=== PATIENT | male | born 1980 | race Asian ===

== ENCOUNTER 2019-09-11 22:05 | Emergency (ER) | payer OTHER ==
[2019-09-11 22:21] VITALS: BP 109/69; PULSE 72; TEMP 98.5; BMI 20.3
[2019-09-12 00:11] LABS: BASO % 1.2 % (0-2.0); EOS % 0.3 % (0-4.5); HEMATOCRIT 39.8 % (35.4-49); HEMOGLOBIN 13.4 GM/dL (11.7-16.9); LYMPH % 25.6 % (8-40); MCH 33.4 pg (25.7-33.7); MCHC 33.6 g/dl (32.0-35.9); MEAN CELL VOLUME 99.5 fl (80-96); MEAN PLT VOLUME 7.6 fl (7.5-11.1); MONO % 5.5 % (3.8-10.2); NEUT % 67.4 % (42.8-82.8); PLATELET COUNT 289 K/MM3 (134-434); RDW 14.2 % (11.9-15.9); WHITE BLOOD COUNT 7.2 K/mm3 (4.0-10.0)
--- NOTE | 2019-09-12 00:14 | PDOC ---
Documentation entered by Nicanor Pruitt SCRIBE, acting as scribe for Nina Pearce MD. Nina Pearce MD: This documentation has been prepared by the Edmond mcwilliams Daniel, SCRIBE, under my direction and personally reviewed by me in its entirety. I confirm that the documentation accurately reflects all work, treatment, procedures, and medical decision making performed by me. History of Present Illness - General Chief Complaint: Alcohol intoxication Stated Complaint: DETOX History Source: Patient Exam Limitations: No Limitations - History of Present Illness Initial Comments: 09/12/19 00:07 The patient is a 38 year old male with a past medical history of alcohol abuse here today for evaluation of alcohol intoxication. The patient reports that he wants to go through detox for alcohol and that he had been clean for 2.5 years until 3 weeks ago when he began drinking again. He states that he began drinking again due to stress over his son undergoing surgery and states that his last drink was 4 hours ago. He notes having withdrawal symptoms of hand tremors, headache, and diaphoresis and states that he was last in detox 3 years ago. Patient denies lightheadedness. Denies fever, chills. Denies chest pain, shortness of breath. Denies nausea, vomiting, diarrhea, abdominal pain. Allergies: NKA Past History - Past Medical History Allergies/Adverse Reactions: Allergies Allergy/AdvReac Type Severity Reaction Status Date / Time No Known Allergies Allergy Verified 09/11/19 23:32 Home Medications: Ambulatory Orders Alprazolam [Xanax] 2 mg PO PRN 09/11/19 Trazodone HCl 100 PO HS 09/11/19 Zolpidem Tartrate [Ambien] 10 mg PO HS 09/11/19 COPD: No - Psycho Social/Smoking Cessation Hx Smoking History: Current every day smoker Number of Cigarettes Smoked Daily: 3 Information on smoking cessation initiated: No Hx Alcohol Use: Yes (8-10 beers per day) Drug/Substance Use Hx: No Review of Systems - Review of Systems Able to Perform ROS?: Yes Comments:: 09/12/19 00:07 GENERAL/CONSTITUTIONAL: +diaphoresis. No fever or chills. No weakness. HEAD, EYES, EARS, NOSE AND THROAT: No change in vision. No ear pain or discharge. No sore throat. CARDIOVASCULAR: No chest pain or shortness of breath. RESPIRATORY: No cough, wheezing, or hemoptysis. GASTROINTESTINAL: No nausea, vomiting, diarrhea or constipation. GENITOURINARY: No dysuria, frequency, or change in urination. MUSCULOSKELETAL: No joint or muscle swelling or pain. No neck or back pain. SKIN: No rash NEUROLOGIC: +headache. +hand tremors. No vertigo, loss of consciousness, or change in strength/sensation. ENDOCRINE: No increased thirst. No abnormal weight change. HEMATOLOGIC/LYMPHATIC: No anemia, easy bleeding, or history of blood clots. ALLERGIC/IMMUNOLOGIC: No hives or skin allergy. Constitutional: No: Chills, Diaphoresis, Fever, Weakness *Physical Exam - Vital Signs Last Vital Signs Temp Pulse Resp BP Pulse Ox 98.5 F 72 19 109/69 100 09/11/19 22:15 09/11/19 22:15 09/11/19 22:15 09/11/19 22:15 09/11/19 22:15 - Physical Exam 09/12/19 00:08 awake alert lungs clear bilat heart rrr no mrg abd soft nt nd. ext wwp. no edema. no calf tenderness. awake alert speech clear . appropriate. gait normal. Medical Decision Making - Medical Decision Making 09/12/19 00:09 38 yo male h/o etoh abuse, recently been binging for 3 week. was sober for 2.5 years. under stress due to sons tongu venous malformation has had many surgeries. and recently needed another. states he does withdraw gets shaky, clifford h/o withdrawal seizures. no hallucinations. last drink was few hours ago. d/w [facility]. Pati Posey, ,will accept pt to [facility] for detox. clinically appropriate here. Discharge - Discharge Information Problems reviewed: Yes Clinical Impression/Diagnosis: Alcohol abuse Condition: Improved Disposition: HOME - Admission No - Follow up/Referral Referrals: ON STAFF,NOT [Primary Care Provider] - - Patient Discharge Instructions Patient Printed Discharge Instructions: DI for Alcohol Abuse Additional Instructions: go directly to [facility] for DEtox . return for any problems or concerns. - Post Discharge Activity
[2019-09-12 00:40] LABS: URINE APPEARANCE CLEAR; URINE BILIRUBIN NEGATIVE (NEGATIVE); URINE COLOR YELLOW; URINE GLUCOSE (UA) NEGATIVE (NEGATIVE); URINE KETONE NEGATIVE (NEGATIVE); URINE LEUK ESTERASE NEGATIVE (NEGATIVE); URINE NITRITE NEGATIVE (NEGATIVE); URINE PROTEIN NEGATIVE (NEGATIVE)
[2019-09-12 00:54] LABS: BILIRUBIN,TOTAL 0.8 mg/dL (0.2-1); BLOOD UREA NITROGEN 8.7 mg/dL (7-18); CALCIUM 8.7 mg/dL (8.5-10.1); CREATININE 0.9 mg/dL (0.55-1.3); POTASSIUM 4.3 mmol/L (3.5-5.1); TOT PROT 6.6 g/dl (6.4-8.2)
[2019-09-12 02:20] LABS: COCAINE, UR NEGATIVE ng/ml (CUTOFF=300); METHADONE, UR NEGATIVE ng/ml (CUTOFF=300); OPIATES, URI NEGATIVE ng/ml (CUTOFF=300); PHENCYCLIDINE,URINE NEGATIVE ng/ml (CUTOFF=25); URINE AMPHETAMINES NEGATIVE ng/ml (CUTOFF=500); URINE BARBITURATES NEGATIVE ng/ml (CUTOFF=200)
[2019-09-12 07:20] LABS: URINE BENZODIAZEPINES POSITIVE ng/ml (CUTOFF=200)
== END 2019-09-12 00:39 | disposition home or self-care (01) ==
LOC: JER 22:05
DX: F10.120 Alcohol abuse with intoxication, uncomplicated (principal); Y90.6 Blood alcohol level of 120-199 mg/100 ml; F17.210 Nicotine dependence, cigarettes, uncomplicated
CPT/HCPCS: 36415; 80053; 80307; 81003; 85025; 99282-25

== ENCOUNTER 2019-09-12 01:17 | Inpatient (IN) | payer OTHER ==
--- NOTE | 2019-09-12 01:21 | HP ---
CIWA Score Nausea/Vomitin-No Nausea/No Vomiting Muscle Tremors: 4-Moderate,w/Arms Extend Anxiety: 4-Mod. Anxious/Guarded Agitation: 4-Moderately Restless Paroxysmal Sweats: 3 Orientation: 0-Oriented Tacttile Disturbances: 0-None Auditory Disturbances: 0-None Visual Disturbances: 0-None Headache: 3-Moderate CIWA-Ar Total Score: 18 - Admission Criteria OASAS Guidelines: Admission for Medically Managed Detox: Requires at least one of the followin. CIWA greater than 12 2. Seizures within the past 24 hours 3. Delirium tremens within the past 24 hours 4. Hallucinations within the past 24 hours 5. Acute intervention needed for co occurring medical disorder 6. Acute intervention needed for co occurring psychiatric disorder 7. Severe withdrawal that cannot be handled at a lower level of care (continued vomiting, continued diarrhea, abnormal vital signs) requiring intravenous medication and/or fluids 8. Patient presents the following: CIWA greater than 12 Admission Criteria Met: Admission criteria met Admitting History and Physical - Smoking History Smoking history: Current every day smoker Aproximately how many cigarettes per day: 3 - Alcohol/Substance Use Hx Alcohol Use: Yes (8-10 beers per day) Admission [facility] Chief Complaint: seeking detox for alcoholism Allergies/Adverse Reactions: Allergies Allergy/AdvReac Type Severity Reaction Status Date / Time No Known Allergies Allergy Verified 09/11/19 23:32 History of Present Illness: referred by kat after client presented there in withdrawal seeking. detox from alcohol. The patient reports that he had been clean for 2.5 years until 3 weeks ago when he began drinking again. He states that he began drinking again due to stress over his son undergoing surgery and states that his last drink was 4 hours ago. He notes having withdrawal symptoms of hand tremors, headache, and diaphoresis and states that he was last in detox 3 years ago. + eye [employer]. Patient denies lightheadedness, seizures, black outs. Denies fever, chills. Denies chest pain, shortness of breath. Denies nausea, vomiting, diarrhea, abdominal pain. lives with family, unemployed, denies legals Exam Limitations: No Limitations - Ebola screening Have you traveled outside of the country in the last 21 days: No Have you had contact with anyone from an Ebola affected area: No Have you been sick,other than usual withdrawal symptoms: No Do you have a fever: No - Review of Systems Constitutional: Chills, Loss of Appetite, Night Sweats, Changes in sleep, Unintentional Wgt. Loss EENT: reports: No Symptoms Reported Respiratory: reports: No Symptoms reported Cardiac: reports: No Symptoms Reported GI: reports: Poor Appetite, Poor Fluid Intake : reports: No Symptoms Reported Musculoskeletal: reports: Back Pain (chronic), Neck Pain (chronic) Integumentary: reports: Sweating Neuro: reports: No Symptoms reported Endocrine: reports: No Symptoms Reported Hematology: reports: No Symptoms Reported Psychiatric: reports: Orientated x3, Anxious, Depressed (denies si) Other Systems: Reviewed and Negative Patient History - Patient Medical History Hx Anemia: No Hx Asthma: No Hx Chronic Obstructive Pulmonary Disease (COPD): No Hx Cancer: No Hx Cardiac Disorders: No Hx Congestive Heart Failure: No Hx Hypertension: No Hx Hypercholesterolemia: No Hx Pacemaker: No HX Cerebrovascular Accident: No Hx Seizures: No Hx Dementia: No Hx Diabetes: No Hx Gastrointestinal Disorders: No Hx Liver Disease: No Hx Genitourinary Disorders: No Hx Sexually Transmitted Disorders: No Hx Renal Disease (ESRD): No Hx Thyroid Disease: No Hx Human Immunodeficiency Virus (HIV): No Hx Hepatitis C: No Hx Depression: Yes Hx Suicide Attempt: No Hx Bipolar Disorder: No Hx Schizophrenia: No Other Medical History: panic attacks - Patient Surgical History Past Surgical History: No - PPD History Previous Implant?: Yes Documented Results: Negative w/o proof Implanted On Prior [facility] Admission?: No PPD to be Administered?: Yes - Smoking Cessation Smoking history: Current every day smoker Aproximately how many cigarettes per day: 20 Cigars Per Day: 0 Hx Chewing Tobacco Use: No Initiated information on smoking cessation: Yes 'Breaking Loose' booklet given: 09/12/19 - Substance & Tx. History Hx Alcohol Use: Yes Hx Substance Use: Yes Substance Use Type: Alcohol Hx Substance Use Treatment: Yes (seafielt) - Substances abused Alcohol Other (specify): beer Substance route: Oral Frequency: Daily Amount used: 10- 12 oz Age of first use: 24 Date of last use: 09/11/19 Admission Physical Exam [facility] - Physical General Appearance: Yes: Mild Distress, Tremorous (felt), Anxious HEENTM: Yes: EOMI, Normocephalic, Normal Voice, DENISE, Pharynx Normal, Other ( poor dentition) Respiratory: Yes: Chest Non-Tender, Lungs Clear, Normal Breath Sounds, No Respiratory Distress, No Accessory Muscle Use Neck: Yes: No masses,lesions,Nodules, Supple, Trachea in good position Breast: Yes: Breast Exam Deferred Cardiology: Yes: Regular Rhythm, Regular Rate, S1, S2 Abdominal: Yes: Normal Bowel Sounds, Non Tender, Soft Genitourinary: Yes: Within Normal Limits (denies) Back: Yes: Normal Inspection Musculoskeletal: Yes: full range of Motion, Gait Steady Extremities: Yes: Normal Capillary Refill, Normal Range of Motion, Non-Tender, Tremors Neurological: Yes: Fully Oriented, Alert, Motor Strength 5/5, Depressed Affect ( denies si) Integumentary: Yes: Dry, Warm Lymphatic: Yes: Within Normal Limits - Diagnostic (1) Alcohol dependence with withdrawal, uncomplicated Status: Acute (2) Substance induced mood disorder Status: Acute (3) Nicotine dependence Status: Acute Qualifiers: Nicotine product type: cigarettes Substance use status: uncomplicated Qualified Code(s): F17.210 - Nicotine dependence, cigarettes, uncomplicated (4) Depressed affect Status: Acute Cleared for Admission S - Detox or Rehab [facility] Level of Care: Medically Managed (ativan) Claeared for Rehab Admission: No Inpatient Rehab Admission - Rehab Decision to Admit Inpatient rehab admission?: No
[2019-09-12] MEDS ORDERED: MAGNESIUM HYDROX 2400MG/30ML ORAL SUSPENSION 30 ML CUP PO PRN (01:32)
[2019-09-12] MEDS ORDERED: MENTHOL/PHENOL 1 EACH UD MM PRN (01:32)
[2019-09-12] MEDS ORDERED: guaiFENesin 200 MG/10 ML 10 ML UNIT-DOSE CUPS PO PRN (01:32)
[2019-09-12] MEDS ORDERED: MAG HYDROX/AL HYDROX/SIMETH 30 ML UNIT-DOSE CUP PO PRN (01:32)
[2019-09-12] MEDS ORDERED: MELATONIN 5 MG TABLETS PO PRN (01:32)
[2019-09-12] MEDS ORDERED: P-EPHED 60MG/TRIPROLIDI 2.5MG TABLET PO PRN (01:32)
[2019-09-12] MEDS ORDERED: METHOCARBAMOL 500 MG TABLET PO PRN (01:32)
[2019-09-12] MEDS ORDERED: DICYCLOMINE HCL 10 MG CAPSULE PO PRN (01:32)
[2019-09-12] MEDS ORDERED: hydrOXYzine PAMOATE 25 MG CAPSULE (FP) PO PRN (01:32)
[2019-09-12] MEDS ORDERED: ONDANSETRON *ODT* 4 MG TABLET SL PRN (01:32)
[2019-09-12] MEDS ORDERED: BISMUTH SUBSALICYLATE 524 MG/30 ML UD PO PRN (01:32)
[2019-09-12] MEDS ORDERED: IBUPROFEN 400 MG TABLET (FP) PO PRN (01:32)
[2019-09-12] MEDS ORDERED: NICOTINE POLACRILEX 2 MG GUM BUC PRN (01:32)
[2019-09-12] MEDS ORDERED: MAGNESIUM CITRATE 300 ML BOTTLE PO PRN (01:32)
[2019-09-12] MEDS ORDERED: ACETAMINOPHEN 325 MG TABLET (FP) PO PRN ×2 (01:32)
[2019-09-12 01:48] VITALS: BMI 20.3
[2019-09-12] MEDS: LORazepam 1 MG TABLET PO PRN (02:48)
[2019-09-12] MEDS: LORazepam 2 MG TABLET PO SCH ×4 (06:04→21:59)
[2019-09-12] MEDS: PRENATAL VITAMINS W/ FOLIC ACID TABLET (FP) PO SCH (10:09)
[2019-09-12] MEDS: NICOTINE 21 MG/24 HOURS TOPICAL PATCH TD SCH (10:09)
--- NOTE | 2019-09-12 14:46 | HP ---
CIWA Score Nausea/Vomitin-No Nausea/No Vomiting Muscle Tremors: 4-Moderate,w/Arms Extend Anxiety: 4-Mod. Anxious/Guarded Agitation: 4-Moderately Restless Paroxysmal Sweats: 3 Orientation: 0-Oriented Tacttile Disturbances: 0-None Auditory Disturbances: 0-None Visual Disturbances: 0-None Headache: 3-Moderate CIWA-Ar Total Score: 18 - Admission Criteria OASAS Guidelines: Admission for Medically Managed Detox: Requires at least one of the followin. CIWA greater than 12 2. Seizures within the past 24 hours 3. Delirium tremens within the past 24 hours 4. Hallucinations within the past 24 hours 5. Acute intervention needed for co occurring medical disorder 6. Acute intervention needed for co occurring psychiatric disorder 7. Severe withdrawal that cannot be handled at a lower level of care (continued vomiting, continued diarrhea, abnormal vital signs) requiring intravenous medication and/or fluids 8. Admitting History and Physical - Smoking History Smoking history: Current every day smoker Aproximately how many cigarettes per day: 3 - Alcohol/Substance Use Hx Alcohol Use: Yes (8-10 beers per day) Admission [facility] Allergies/Adverse Reactions: Allergies Allergy/AdvReac Type Severity Reaction Status Date / Time No Known Allergies Allergy Verified 09/11/19 23:32 - Ebola screening Have you traveled outside of the country in the last 21 days: No Have you had contact with anyone from an Ebola affected area: No Have you been sick,other than usual withdrawal symptoms: No Do you have a fever: No Patient History - Patient Medical History Hx Anemia: No Hx Asthma: No Hx Chronic Obstructive Pulmonary Disease (COPD): No Hx Cancer: No Hx Cardiac Disorders: No Hx Congestive Heart Failure: No Hx Hypertension: No Hx Hypercholesterolemia: No Hx Pacemaker: No HX Cerebrovascular Accident: No Hx Seizures: No Hx Dementia: No Hx Diabetes: No Hx Gastrointestinal Disorders: No Hx Liver Disease: No Hx Genitourinary Disorders: No Hx Sexually Transmitted Disorders: No Hx Renal Disease (ESRD): No Hx Thyroid Disease: No Hx Human Immunodeficiency Virus (HIV): No Hx Hepatitis C: No Hx Depression: No Hx Suicide Attempt: No Hx Bipolar Disorder: No Hx Schizophrenia: No Other Medical History: panic attacks - Patient Surgical History Past Surgical History: No Hx Neurologic Surgery: No Hx Cataract Extraction: No Hx Cardiac Surgery: No Hx Lung Surgery: No Hx Breast Surgery: No Hx Breast Biopsy: No Hx Abdominal Surgery: No Hx Appendectomy: No Hx Cholecystectomy: No Hx Genitourinary Surgery: No Hx Section: No Hx Orthopedic Surgery: No Anesthesia Reaction: No - PPD History Previous Implant?: Yes Documented Results: Negative w/o proof Implanted On Prior [facility] Admission?: No Date: 09/14/19 - Reproductive History Patient : No - Smoking Cessation Smoking history: Current every day smoker Aproximately how many cigarettes per day: 3 Cigars Per Day: 0 Hx Chewing Tobacco Use: No Initiated information on smoking cessation: No - Substances abused Alcohol Other (specify): beer Substance route: Oral Frequency: Daily Amount used: 10- 12 oz Age of first use: 24 Date of last use: 09/11/19 Admission Physical Exam [facility] - Vital Signs Vital Signs: Vital Signs - 24 hr 09/12/19 09/12/19 09/12/19 01:45 02:46 04:03 Temperature 97.3 F L 97 F L Pulse Rate 89 84 Respiratory 18 18 18 Rate Blood Pressure 100/66 108/77 09/12/19 09/12/19 09/12/19 06:26 09:09 13:29 Temperature 97.4 F L 98.5 F 98.4 F Pulse Rate 68 69 91 H Respiratory 16 18 20 Rate Blood Pressure 98/64 105/57 L 107/71 Breathalyzer - Breathalyzer Breathalyzer: 0.090 Urine Drug Screen - Test Device Lot number: [id number] Expiration date: 05/13/21 - Control Is test valid?: Yes - Results Drug screen NEGATIVE: No Urine drug screen results: BZO-Benzodiazepines
[2019-09-12] MEDS: THIAMINE HCL 100 MG TABLET (FP) PO SCH (22:00)
[2019-09-12] MEDS ORDERED: traZODone HCL 50 MG TABLET (FP) PO ONE (22:00)
[2019-09-13] MEDS: LORazepam 1 MG TABLET PO SCH ×4 (05:09→22:11)
--- NOTE | 2019-09-13 07:41 | CONSULT ---
[facility] Psychiatric Consult - Data Date of interview: 09/13/19 Admission source: [facility] Identifying data: Patient is a 38 year old [place] male, father of one , domiciled, unemployed, and is supported by financial savings. This is patient' s first admission to detox at [facility]. Patient admitted to for alcohol dependence. Substance Abuse History: Smoking Cessation. Smoking history: Current every day smoker. Aproximately how many cigarettes per day: 20. Cigars Per Day: 0. Hx Chewing Tobacco Use: No. Initiated information on smoking cessation: Yes. ' Breaking Loose' booklet given: 09/12/19. - Substance & Tx. History. Hx Alcohol Use: Yes. Hx Substance Use: Yes. Substance Use Type: Alcohol. Hx Substance Use Treatment: Yes (candice). - Substances abused. Alcohol. Other (specify): beer. Substance route: Oral. Frequency: Daily. Amount used: 10- 12 oz. Age of first use: 24. Date of last use: 09/11/19 Medical History: Denies. Endores good health. Psychiatric History: Patient denies history of psychiatric hospitalizations and suicide attempt. Mr. Palomares currently see's the psychiatrist Dr. Roa in [place], [place] at [facility] and is prescribed trazodone 100mg HS and xanax 2mg PRN for panic attacks. Mr. Palomares is also prescribed ambien 10mg for insomnia by his PCP. Diagnosis of anxiety disorder. At present patient reports feeling anxious and is experiencing difficulty sleeping. Physical/Sexual Abuse/Trauma History: denies. Mental Status Exam - Mental Status Exam Alert and Oriented to: Time, Place, Person Cognitive Function: Good Patient Appearance: Well Groomed Mood: Withdrawn Affect: Appropriate Patient Behavior: Appropriate, Cooperative Speech Pattern: Appropriate Voice Loudness: Normal Thought Process: Goal Oriented Thought Disorder: Not Present Hallucinations: Denies Suicidal Ideation: Denies Homicidal Ideation: Denies Insight/Judgement: Poor Sleep: Poorly Appetite: Fair Muscle strength/Tone: Normal Gait/Station: Normal Psychiatric Findings - Problem List ([place] 1, 2,3) (1) Alcohol-induced mood disorder Current Visit: Yes Status: Acute (2) Alcohol dependence with withdrawal, uncomplicated Current Visit: Yes Status: Acute (3) Anxiety disorder Current Visit: Yes Status: Chronic (4) Insomnia Current Visit: Yes Status: Acute - Initial Treatment Plan Initial Treatment Plan: Psychoeducation provided. Detoxification in progress. Will order Trazodone 100mg HS + Vistaril 50mg Q4h for anxiety. Benefits and side effects discussed. Verbal consent given.
[2019-09-13] MEDS ORDERED: hydrOXYzine PAMOATE 25 MG CAPSULE (FP) PO PRN (08:14)
[2019-09-13] MEDS: LORazepam 1 MG TABLET PO PRN (08:39)
[2019-09-13] MEDS ORDERED: GABAPENTIN 100 MG CAPSULE (FP) PO ONE (09:46)
--- NOTE | 2019-09-13 09:50 | PN ---
[facility] CIWA - CIWA Score Nausea/Vomitin-Mild Nausea/No Vomiting Muscle Tremors: 4-Moderate,w/Arms Extend Anxiety: 3 Agitation: 2 Paroxysmal Sweats: 2 Orientation: 0-Oriented Tacttile Disturbances: 1-Very Mild Itch/Numbness Auditory Disturbances: 1-Very Mild Visual Disturbances: 0-None Headache: 1-Very Mild CIWA-Ar Total Score: 15 BHS Progress Note (SOAP) Subjective: 38 years old male admitted on 09/12/19 for alcohol withdrawal sx management treated with ativan detox regimen tremor muscle sore headache Objective: 09/13/19 09:49 Vital Signs Temperature 98.4 F 09/13/19 09:12 Pulse Rate 54 L 09/13/19 09:12 Respiratory Rate 18 09/13/19 09:12 Blood Pressure 95/54 L 09/13/19 09:12 O2 Sat by Pulse Oximetry (%) 09/13/19 09:51 lab see ER report 09/12/19 Assessment: 09/13/19 09:52 alcohol withdrawal sx 09/13/19 09:52 patient was alcohol free for 2.5 years began drinking 3 weeks ago anxiety + ativan 1 mg po at 2 pm Plan: continue ativan detox regimen
[2019-09-13] MEDS: PRENATAL VITAMINS W/ FOLIC ACID TABLET (FP) PO SCH (10:02)
[2019-09-13] MEDS: NICOTINE 21 MG/24 HOURS TOPICAL PATCH TD SCH (10:03)
[2019-09-13] MEDS ORDERED: LORazepam 1 MG TABLET PO ONE (14:00)
[2019-09-13] MEDS: traZODone HCL 100 MG TABLET (FP) PO SCH (22:11)
[2019-09-13] MEDS: THIAMINE HCL 100 MG TABLET (FP) PO SCH (22:11)
[2019-09-14] MEDS ORDERED: LORazepam 0.5 MG TABLET PO PRN
[2019-09-14] MEDS: LORazepam 0.5 MG TABLET PO SCH ×4 (06:25→22:05)
[2019-09-14] MEDS: PRENATAL VITAMINS W/ FOLIC ACID TABLET (FP) PO SCH (10:20)
[2019-09-14] MEDS: NICOTINE 21 MG/24 HOURS TOPICAL PATCH TD SCH (10:22)
--- NOTE | 2019-09-14 12:01 | EKG ---
Test Reason : Blood Pressure : / mmHG Vent. Rate : 059 BPM Atrial Rate : 059 BPM P-R Int : 208 ms QRS Dur : 102 ms QT Int : 410 ms P-R-T Axes : 067 083 062 degrees QTc Int : 405 ms SINUS BRADYCARDIA OTHERWISE NORMAL ECG NO PREVIOUS ECGS AVAILABLE Confirmed by REUBEN TINEO MD ([id number]) on 09/14/2019 12:00:57 PM Referred By: BELEM Confirmed By:REUBEN TINEO MD
--- NOTE | 2019-09-14 14:09 | PN ---
S CIWA - CIWA Score Nausea/Vomitin-Mild Nausea/No Vomiting Muscle Tremors: 3 Anxiety: 2 Agitation: 1-Slight > Activity Paroxysmal Sweats: 2 Orientation: 0-Oriented Tacttile Disturbances: 0-None Auditory Disturbances: 0-None Visual Disturbances: 0-None Headache: 1-Very Mild CIWA-Ar Total Score: 10 BHS Progress Note (SOAP) Subjective: 38 years old male admitted on 09/12/19 for alcohol withdrawal sx management treated with ativan detox regimen slept through the night feeling better today less tremor mild anxiety discuss aftercare with staff Objective: 09/14/19 14:09 Vital Signs Temperature 98.4 F 09/14/19 13:06 Pulse Rate 75 09/14/19 13:06 Respiratory Rate 18 09/14/19 13:06 Blood Pressure 93/56 L 09/14/19 13:06 O2 Sat by Pulse Oximetry (%) 09/14/19 14:10 See ER 09/10/19 lab report Assessment: 09/14/19 14:11 alcohol withdrawal sx Plan: continue ativan detox regimen
[2019-09-14] MEDS: THIAMINE HCL 100 MG TABLET (FP) PO SCH (22:05)
[2019-09-14] MEDS: traZODone HCL 100 MG TABLET (FP) PO SCH (22:05)
[2019-09-15] MEDS ORDERED: LORazepam 0.5 MG TABLET PO ONE (05:00)
[2019-09-15 09:10] VITALS: BP 106/62; PULSE 90; TEMP 98
--- NOTE | 2019-09-15 09:30 | DS ---
[facility] Detox Discharge Summary Admission Date: 09/12/19 Discharge Date: 09/15/19 - History Present History: Alcohol Dependence Additional Comments: 38 years old male admitted on 09/12/19 for alcohol withdrawal sx management ativan as treatment regimen patient tolerated well alert oriented x 3 cardiac s1s2 regular rate rhythm respiratory clear lung bilaterally on auscultation extremities full range of motion - Physical Exam Results Vital Signs: Vital Signs Temperature 98.0 F 09/15/19 09:08 Pulse Rate 90 09/15/19 09:08 Respiratory Rate 18 09/15/19 09:08 Blood Pressure 106/62 09/15/19 09:08 O2 Sat by Pulse Oximetry (%) Pertinent Admission Physical Exam Findings: alcohol withdrawal sx lab see 09/10/19 ER report - Treatment Hospital Course: Detox Protocol Followed, Detoxed Safely, Responded well, Discharged Condition Good, Rehab Referral Accepted Patient has Accepted a Rehab Referral to: [facility] - Medication Discharge Medications: Ambulatory Orders Trazodone HCl 100 mg PO HS 09/11/19 Zolpidem Tartrate [Ambien] 10 mg PO HS 09/11/19 - Diagnosis (1) Alcohol dependence with withdrawal, uncomplicated Current Visit: Yes Status: Acute (2) Nicotine dependence Current Visit: Yes Status: Acute Qualifiers: Nicotine product type: cigarettes Substance use status: in withdrawal Qualified Code(s): F17.213 - Nicotine dependence, cigarettes, with withdrawal (3) Substance induced mood disorder Current Visit: Yes Status: Suspected - AMA Did Patient Leave Against Medical Advice: No CIWA Score - CIWA Score Nausea/Vomitin-No Nausea/No Vomiting Muscle Tremors: 2 Anxiety: 1-Mildly Anxious Agitation: 0-Normal Activity Paroxysmal Sweats: 1-Minimal Palms Moist Orientation: 0-Oriented Tacttile Disturbances: 0-None Auditory Disturbances: 0-None Visual Disturbances: 0-None Headache: 1-Very Mild CIWA-Ar Total Score: 5
[2019-09-15] MEDS: PRENATAL VITAMINS W/ FOLIC ACID TABLET (FP) PO SCH (10:15)
[2019-09-15] MEDS: NICOTINE 21 MG/24 HOURS TOPICAL PATCH TD SCH (10:15)
== END 2019-09-15 11:34 | disposition home or self-care (01) | DRG 775 ==
LOC: EDSTATUS 02:18 → Y3N 02:20
PROVIDERS: ADMIT Allergy & Immunology; ATTEND Allergy & Immunology
PROC: HZ2ZZZZ Detoxification Services for Substance Abuse Treatment (ICD-10-PCS; principal; 2019-09-12)
DX: F10.230 Alcohol dependence with withdrawal, uncomplicated (principal); F17.213 Nicotine dependence, cigarettes, with withdrawal; F10.24 Alcohol dependence with alcohol-induced mood disorder; F19.24 Other psychoactive substance dependence with psychoactive substance-induced mood disorder; F41.9 Anxiety disorder, unspecified; G47.00 Insomnia, unspecified; R45.89 Other symptoms and signs involving emotional state
CPT/HCPCS: 36415; 86593; 93005; 93010

== ENCOUNTER 2021-10-03 13:34 | Inpatient (IN) | payer OTHER ==
[2021-10-03] MEDS ORDERED: IBUPROFEN 400 MG TABLET (FP) PO PRN (14:46)
[2021-10-03] MEDS ORDERED: LORazepam 1 MG TABLET PO PRN (14:46)
[2021-10-03] MEDS ORDERED: MAGNESIUM CITRATE 300 ML BOTTLE PO PRN (14:46)
[2021-10-03] MEDS ORDERED: MENTHOL/PHENOL 1 EACH UD MM PRN (14:46)
[2021-10-03] MEDS ORDERED: METHOCARBAMOL 500 MG TABLET PO PRN (14:46)
[2021-10-03] MEDS ORDERED: ONDANSETRON *ODT* 4 MG TABLET SL PRN (14:46)
[2021-10-03] MEDS ORDERED: MAG HYDROX/AL HYDROX/SIMETH 30 ML UNIT-DOSE CUP PO PRN (14:46)
[2021-10-03] MEDS ORDERED: ACETAMINOPHEN 325 MG TABLET (FP) PO PRN ×2 (14:46)
[2021-10-03] MEDS ORDERED: MAGNESIUM HYDROX 2400MG/30ML ORAL SUSPENSION 30 ML CUP PO PRN (14:46)
[2021-10-03] MEDS ORDERED: BISMUTH SUBSALICYLATE 524 MG/30 ML PO PRN (14:46)
[2021-10-03 15:16] VITALS: BMI 19.1
[2021-10-03] MEDS: LORazepam 2 MG TABLET PO SCH ×2 (19:32→22:48)
[2021-10-03] MEDS: hydrOXYzine PAMOATE 25 MG CAPSULE (FP) PO SCH ×2 (19:33→22:47)
[2021-10-03] MEDS: PRENATAL VITAMINS W/ FOLIC ACID TABLET (FP) PO SCH (19:47)
[2021-10-03] MEDS ORDERED: MELATONIN 5 MG TABLETS PO SCH (22:00)
[2021-10-03] MEDS ORDERED: THIAMINE HCL 100 MG TABLET (FP) PO SCH (22:00)
[2021-10-03] MEDS: NICOTINE 10 MG CARTRIDGE (INHALER) IH PRN (22:47)
[2021-10-04] MEDS: hydrOXYzine PAMOATE 25 MG CAPSULE (FP) PO SCH ×3 (06:42→13:26)
[2021-10-04] MEDS: LORazepam 2 MG TABLET PO SCH ×2 (06:42→10:12)
[2021-10-04] MEDS: PRENATAL VITAMINS W/ FOLIC ACID TABLET (FP) PO SCH (10:12)
[2021-10-04] MEDS: NICOTINE 10 MG CARTRIDGE (INHALER) IH PRN (10:12)
[2021-10-04 10:59] VITALS: PULSE 56
[2021-10-04 12:38] LABS: HEMOGLOBIN 12.1 GM/dL (11.7-16.9); MCH 37.2 pg (25.7-33.7); MCHC 34.4 g/dl (32.0-35.9); MEAN CELL VOLUME 108.2 fl (80-96); MEAN PLT VOLUME 7.6 fl (7.5-11.1); PLATELET COUNT 223 10^3/uL (134-434); RBC 3.24 M/mm3 (4.00-5.60); RDW 19.1 % (11.9-15.9)
[2021-10-04 12:41] LABS: CALCIUM 9.2 mg/dL (8.5-10.1)
[2021-10-04 12:42] LABS: ALBUMIN 3.3 g/dl (3.4-5.0)
[2021-10-04 12:45] LABS: CREATININE 0.9 mg/dL (0.55-1.3)
[2021-10-04 12:46] LABS: BILIRUBIN,TOTAL 1.6 mg/dL (0.2-1); TOT PROT 5.9 g/dl (6.4-8.2)
[2021-10-04 13:17] VITALS: BP 89/51; TEMP 97.5
[2021-10-05] MEDS ORDERED: LORazepam 1 MG TABLET PO SCH (05:00)
[2021-10-06] MEDS ORDERED: LORazepam 0.5 MG TABLET PO PRN
[2021-10-06] MEDS ORDERED: LORazepam 0.5 MG TABLET PO SCH (05:00)
[2021-10-07] MEDS ORDERED: LORazepam 0.5 MG TABLET PO ONE (05:00)
== END 2021-10-04 15:38 | disposition left against medical advice (07) | DRG 770 ==
LOC: YASAS 13:34 → Y3N 16:02
PROVIDERS: ADMIT Allergy & Immunology; ATTEND Allergy & Immunology
PROC: HZ2ZZZZ Detoxification Services for Substance Abuse Treatment (ICD-10-PCS; principal; 2021-10-03)
DX: F10.230 Alcohol dependence with withdrawal, uncomplicated (principal); F10.280 Alcohol dependence with alcohol-induced anxiety disorder; F17.213 Nicotine dependence, cigarettes, with withdrawal; F41.9 Anxiety disorder, unspecified; G47.00 Insomnia, unspecified; U07.0 Vaping-related disorder; Z56.0 Unemployment, unspecified
CPT/HCPCS: 36415; 80053; 85027; 86780; 93005; 93010; C9803; U0003; U0005